=== PATIENT | female | born 1990 | race Caucasian/White ===

== ENCOUNTER 2021-10-08 12:31 | Outpatient (CLI) | payer BC | END 2021-10-08 12:32 | disposition home or self-care (01) | LOC: CSHLAB 12:31 | PROVIDERS: ATTEND Obstetrics & Gynecology | DX: Z20.822 Contact with and (suspected) exposure to COVID-19 (principal) | CPT/HCPCS: U0003; U0005 ==

== ENCOUNTER 2021-10-12 19:00 | Inpatient (IN) | payer BC ==
[2021-10-12 19:27] VITALS: BMI 30.6
[2021-10-12] MEDS ORDERED: Butorphanol Tartrate 1 MG/ML VIAL SLOW IVP PRN (19:27)
[2021-10-12] MEDS ORDERED: Promethazine HCl 25 MG/ML VIAL IM PRN (19:27)
[2021-10-12] MEDS ORDERED: Misoprostol 200 MCG TAB PR PRN (19:27)
[2021-10-12] MEDS ORDERED: Acetaminophen 500 MG TAB PO PRN (19:27)
[2021-10-12] MEDS ORDERED: Carboprost 250 MCG/ML AMP IM PRN (19:27)
[2021-10-12] MEDS ORDERED: Ondansetron PF 4 MG/2 ML Vial IVP PRN (19:27)
[2021-10-12] MEDS ORDERED: HYDROcodone/Acetaminophen 5/325 mg Tablet PO PRN (19:27)
[2021-10-12] MEDS ORDERED: Ibuprofen 800 MG TAB PO PRN (19:27)
[2021-10-12] MEDS ORDERED: Methylergonovine 0.2 MG/ML VIAL IM PRN (19:27)
[2021-10-12] MEDS ORDERED: hydrALAZINE 20 MG/ML VIAL SLOW IVP PRN (19:27)
[2021-10-12] MEDS ORDERED: Zolpidem Tartrate 5 MG TAB PO PRN (19:27)
[2021-10-12] MEDS ORDERED: Diphenoxylate HCl/Atropine Tablet PO PRN (19:27)
[2021-10-12] MEDS ORDERED: Lidocaine 1% (PF) 30 ML VIAL SC PRN (19:27)
[2021-10-12] MEDS ORDERED: Lactated Ringer's 1,000 ML IV SCH (19:30)
[2021-10-12] MEDS ORDERED: NS w/ Oxytocin 30 units 500 ML IV SCH ×2 (19:30)
[2021-10-12 20:11] LABS: Hemoglobin 11.1 g/dL (12.0-15.5); Mean Corpuscular HGB CONC 32.6 g/dL (32.0-36.0); Mean Corpuscular Hemoglobin 27.3 pg (27.0-33.0); Mean Corpuscular Volume 83.5 fl (81.6-98.3); Mean Platelet Volume 10.5 fl (7.4-10.4); Platelet Count 229 10x3/uL (150-450); RBC Distribution Width 12.5 % (11.5-14.5); Red Blood Cell (RBC) Count 4.07 10x6/uL (3.90-5.03); White Blood Cell (WBC) Count 9.9 10x3/uL (3.5-10.5)
[2021-10-12] MEDS: Misoprostol 100 MCG TAB VAG SCH ×2 (20:15→23:15)
[2021-10-12 20:38] LABS: Hep B Surf Ag Non-Reactive S/CO (NonReactive); Syphilis Antibody Nonreactive (Nonreactive); Syphilis Antibody Index 0.06 S/CO (<1.00 Non-Reactive)
[2021-10-12 20:40] LABS: HBSAg Index 0.17 S/CO (0-0.99)
[2021-10-13] MEDS: Misoprostol 100 MCG TAB VAG SCH ×2 (03:36→20:21)
[2021-10-13] MEDS ORDERED: Fentanyl 2 mcg/Bup 0.1% Cadd 100 ML ONE (09:01)
[2021-10-13] MEDS ORDERED: Moisturizing Cream (Eucerin) 113 GM JAR TOP PRN (10:07)
[2021-10-13] MEDS ORDERED: Ondansetron PF 4 MG/2 ML Vial IVP PRN ×2 (10:07→20:17)
[2021-10-13] MEDS ORDERED: Lactated Ringer's 500 ML IV PRN (10:07)
[2021-10-13] MEDS ORDERED: diphenhydrAMINE 50 MG/ML VIAL IVP PRN (10:07)
[2021-10-13] MEDS ORDERED: ePHEDrine Sulfate 50 MG/10 ML VIAL SLOW IVP PRN (10:07)
[2021-10-13] MEDS ORDERED: Naloxone HCl 0.4 mg/ml Vial IVP PRN ×2 (10:07)
[2021-10-13] MEDS ORDERED: Acetaminophen 325 MG TAB PO PRN (10:07)
[2021-10-13] MEDS ORDERED: Promethazine HCl 25 MG/ML VIAL IM PRN ×2 (10:07→20:17)
[2021-10-13] MEDS ORDERED: Fentanyl 2 mcg/Bupivacaine 0.1% Cassette 100 ML EPIDURAL SCH (10:15)
[2021-10-13] MEDS ORDERED: Communication Order-Pharmacy FS SCH (10:15)
[2021-10-13] MEDS ORDERED: Misoprostol 200 MCG TAB ONE (14:54)
[2021-10-13] MEDS ORDERED: Mineral Oil ENEMA ONE (14:54)
[2021-10-13] MEDS ORDERED: Methylergonovine 0.2 MG/ML VIAL ONE (14:54)
[2021-10-13] MEDS ORDERED: Bisacodyl 10 MG SUPP PR PRN (20:17)
[2021-10-13] MEDS ORDERED: Boostrix 0.5 ML (Tdap) VIAL IM ONE (20:17)
[2021-10-13] MEDS ORDERED: hydrALAZINE 20 MG/ML VIAL SLOW IVP PRN (20:17)
[2021-10-13] MEDS ORDERED: HYDROcodone/Acetaminophen 5/325 mg Tablet PO PRN ×2 (20:17)
[2021-10-13] MEDS ORDERED: Benzocaine-Menthol 82.5 ML CAN TOP PRN (20:17)
[2021-10-13] MEDS ORDERED: Lanolin Ointment 7 GM TUBE TOP PRN (20:17)
[2021-10-13] MEDS ORDERED: Milk Of Magnesia 30 ML UDCUP PO PRN (20:17)
[2021-10-13] MEDS ORDERED: diphenhydrAMINE 25 MG CAP PO PRN (20:17)
[2021-10-13] MEDS ORDERED: Preparation H Ointment 28 GM TUBE PR PRN (20:17)
[2021-10-13] MEDS ORDERED: Ferrous Sulfate 325 MG TAB PO SCH (20:30)
[2021-10-13] MEDS: Docusate 100 MG CAP PO SCH (21:14)
[2021-10-13] MEDS ORDERED: Ibuprofen 800 MG TAB PO SCH (22:00)
[2021-10-14] MEDS: Ibuprofen 800 MG TAB PO SCH ×3 (01:59→18:33)
[2021-10-14] MEDS: Ferrous Sulfate 325 MG TAB PO SCH ×2 (08:19→14:23)
[2021-10-14] MEDS: Prenatal Vitamin 1 TAB PO SCH (08:20)
[2021-10-14] MEDS: Docusate 100 MG CAP PO SCH ×2 (08:20→21:10)
[2021-10-15] MEDS: Ibuprofen 800 MG TAB PO SCH ×2 (01:57→11:36)
[2021-10-15 07:45] VITALS: BP 127/75; TEMP 97.9
[2021-10-15] MEDS: Ferrous Sulfate 325 MG TAB PO SCH (07:51)
[2021-10-15] MEDS: Docusate 100 MG CAP PO SCH (08:13)
[2021-10-15] MEDS: Prenatal Vitamin 1 TAB PO SCH (08:14)
== END 2021-10-15 13:10 | disposition home or self-care (01) | DRG 807 ==
LOC: CSHLD 19:02 → CSHPP 10-13 20:05
PROVIDERS: ADMIT Student in an Organized Health Care Education/Training Program; ATTEND Student in an Organized Health Care Education/Training Program
PROC: 10E0XZZ Delivery of Products of Conception, External Approach (ICD-10-PCS; principal; 2021-10-13)
PROC: 0KQM0ZZ Repair Perineum Muscle, Open Approach (ICD-10-PCS; 2021-10-13)
PROC: 3E0P7VZ Introduction of Hormone into Female Reproductive, Via Natural or Artificial Opening (ICD-10-PCS; 2021-10-13)
PROC: 10907ZC Drainage of Amniotic Fluid, Therapeutic from Products of Conception, Via Natural or Artificial Opening (ICD-10-PCS; 2021-10-13)
DX: O69.81X0 Labor and delivery complicated by cord around neck, without compression, not applicable or unspecified (principal); Z37.0 Single live birth; O70.1 Second degree perineal laceration during delivery; Z3A.40 40 weeks gestation of pregnancy; Z79.899 Other long term (current) drug therapy
CPT/HCPCS: 36415; 51702; 85027; 86780; 86850; 86900; 86901; 87340; J2590